=== PATIENT | female | born 1945 | race Caucasian/White ===

== ENCOUNTER 2017-07-27 13:32 | Emergency (ER) | payer MEDICARE, BC ==
[2017-07-27 13:35] VITALS: BMI 35.6
[2017-07-27 13:42] VITALS: TEMP 98.4; O2SAT 97
[2017-07-27] MEDS ORDERED: Sodium Chloride 0.9% 500 ML IV STA (14:08)
--- NOTE | 2017-07-27 14:11 | ED PDOC ---
Arrival/HPI - General Chief Complaint: Shortness Of Breath Time Seen by Provider: 07/27/17 13:33 Historian: Patient - History of Present Illness Narrative History of Present Illness (Text): 07/27/17 14:08 A 72 year old female, whose past medical history includes insulin dependent diabetes, was sent into the emergency department by PMD for evaluation. Patient complains of fatigue, dyspnea on exertion and mild chest pressure. She notes feeling stressed over the past few days. Patient had a recent stress test done on ,which showed normal results. Patient notes nausea and dizziness but denies any fever, chills, vomiting, diarrhea, abdominal pain, hematouria, hematochezia , cough, headache, vision changes or any other complaints. PMD: Dr. Samaniego Annual Giving Officer: Dr. Manzano Time/Duration: Prior to Arrival Symptom Course: Unchanged Quality: Other Context: Other Past Medical History - Provider Review Nursing Documentation Reviewed: Yes - Infectious Disease Hx of Infectious Diseases: None - Tetanus Immunization Tetanus Immunization: Unknown - Cardiac Hx Angina: Yes (chest pain) Hx Hypertension: Yes - Neurological Hx Paralysis: No - Endocrine/Metabolic Hx Diabetes Mellitus Type 1: Yes Hx Diabetes Mellitus Type 2: Yes - Hematological/Oncological Hx Blood Transfusions: No Hx Blood Transfusion Reaction: No - Musculoskeletal/Rheumatological Hx Musculoskeletal Disorders: Yes Other/Comment: tremors - Psychiatric Hx Emotional Abuse: No Hx Physical Abuse: No Hx Substance Use: No - Surgical History Hx Cholecystectomy: Yes Other/Comment: L breast surgery - Anesthesia Hx Anesthesia: Yes Hx Anesthesia Reactions: No Hx Malignant Hyperthermia: No - Suicidal Assessment Feels Threatened In Home Enviroment: No Family/Social History - Physician Review Nursing Documentation Reviewed: Yes Family/Social History: No Known Family HX Smoking Status: Never Smoked Hx Alcohol Use: No Hx Substance Use: No Allergies/Home Meds Allergies/Adverse Reactions: Allergies No Known Allergies Allergy (Verified 03/17/16 22:48) Home Medications: Home Meds Medication Instructions Recorded Confirmed Metoprolol Succinate [Toprol XL] 200 mg PO QAM 08/10/12 07/27/17 Ezetimibe [Zetia] 10 mg PO DAILY 06/10/17 07/27/17 Indapamide [Lozol] 1.25 mg PO DAILY 06/10/17 07/27/17 Insulin Lispro [Humalog (Insulin 21 unit SQ TID 06/10/17 07/27/17 Lispro)] LORazepam [Ativan] 0.5 mg PO BID 06/10/17 07/27/17 Primidone [Mysoline] 100 mg PO HS 06/10/17 07/27/17 Valsartan [Diovan] 320 mg PO DAILY 06/10/17 07/27/17 amLODIPine [Norvasc] 10 mg PO DAILY 06/10/17 07/27/17 Insulin Degludec [Tresiba 70 unit SQ HS 07/27/17 07/27/17 Flextouch U-100] Olopatadine HCl [Pataday] 1 drop BOTHEYES DAILY 07/27/17 07/27/17 Review of Systems - Physician Review All systems were reviewed & negative as marked: Yes - Review of Systems Constitutional: Fatigue. absent: Fevers, Night Sweats Eyes: absent: Vision Changes Respiratory: Other (GOMEZ). absent: Cough Cardiovascular: Chest Pain (Mild chest pressure) Gastrointestinal: Nausea. absent: Abdominal Pain, Diarrhea, Vomiting, Hematochezia Genitourinary Female: absent: Hematuria Neurological: Dizziness. absent: Headache Physical Exam Vital Signs Reviewed: Yes Vital Signs Temp Pulse Resp BP Pulse Ox 07/27/17 14:20 16 07/27/17 13:38 98.4 F 88 18 133/88 97 Temperature: Afebrile Blood Pressure: Normal Pulse: Regular Respiratory Rate: Normal Appearance: Positive for: Well-Appearing, Non-Toxic, Comfortable Pain Distress: None Mental Status: Positive for: Alert and Oriented X 3 - Systems Exam Head: Present: Atraumatic, Normocephalic Pupils: Present: PERRL Conjunctiva: Present: Normal Mouth: Present: Moist Mucous Membranes Pharnyx: No: ERYTHEMA, EXUDATE, TONSILS ENLARGED Neck: Present: Normal Range of Motion Respiratory/Chest: Present: Clear to Auscultation, Good Air Exchange. No: Respiratory Distress, Accessory Muscle Use Cardiovascular: Present: Normal S1, S2, Irregular Rhythm. No: Murmurs Abdomen: Present: Normal Bowel Sounds. No: Tenderness, Distention, Peritoneal Signs Back: Present: Normal Inspection Upper Extremity: Present: Normal Inspection. No: Cyanosis, Edema Lower Extremity: Present: Normal Inspection. No: Edema Neurological: Present: GCS=15, CN II-XII Intact, Speech Normal Skin: Present: Warm, Dry, Normal Color. No: Rashes Psychiatric: Present: Alert, Oriented x 3, Normal Insight, Normal Concentration Medical Decision Making ED Course and Treatment: 07/27/17 14:07 Impression: A 72 year old female with fatigue, dyspnea on exertion and mild chest pressure. Patient notes nausea and dizziness. Plan: -- Chest CT -- Chest xray -- Bilateral duplex lower extremity ultrasound -- Labs -- Urinalysis -- IV fluids -- Reassess and disposition Progress Notes: Report Date : 07/27/2017 15:24:39 PROCEDURE: CHEST RADIOGRAPH, 1 VIEW Dictator : Magui Dhillon MD IMPRESSION: No active pulmonary disease. Report Date : 07/27/2017 15:48:27 PROCEDURE: CT Chest with contrast (Pulmonary Angiogram) Dictator : Michel Doshi MD IMPRESSION: Unremarkable CT pulmonary angiogram. No pulmonary embolus. 07/27/17 16:04 Spoke with missile technician, states lower extremity doppler negative for DVT. 07/27/17 16:30 Patient with noted history of GOMEZ x several days. EKG shows afib and ST segmental changes are unchanged. She just had a negative stress test last month and given symptoms, Dr. Samaniego had been concerned about a possible PE. CTA and LE dopplers are negative for PE and DVT respectively. Case had also been discussed with Dr. Manzano, who said if no PE, she may be d/c. Per Dr. Samaniego, he said to start her on eliquis as anticoagulation for the atrial fibrillation and have her f/u with Dr. Manzano. - Lab Interpretations Lab Results: 07/27/17 14:20 07/27/17 14:20 Lab Results 07/27/17 14:30: Urine Color Yellow, Urine Appearance Clear, Urine pH 6.0, Ur Specific [place] 1.025, Urine Protein Trace H, Urine Glucose (UA) Negative, Urine Ketones Negative, Urine Blood Negative, Urine Nitrate Negative, Urine Bilirubin Negative, Urine Urobilinogen 0.2, Ur Leukocyte Esterase Negative, Urine RBC 0 - 2, Urine WBC 0 - 2, Ur Epithelial Cells 4 - 5, Hyaline Casts 0 - 2 07/27/17 14:20: Sodium 141, Potassium 3.5 L, Chloride 103, Carbon Dioxide 26, Anion Gap 16, BUN 20, Creatinine 0.6, Est GFR ( Amer) > 60, Est GFR (Non- Af Amer) > 60, Random Glucose 175 H, Calcium 9.5, Magnesium 1.6 L, Total Bilirubin 0.4, AST 22, ALT 24, Alkaline Phosphatase 114, Lactate Dehydrogenase 363, Total Creatine Kinase 58, Troponin I < 0.01, NT-Pro-B Natriuret Pep 858 H, Total Protein 7.0, Albumin 4.1, Globulin 2.8, Albumin/Globulin Ratio 1.5, Lipase 88 07/27/17 14:20: PT 10.4, INR 0.96, APTT 27.8 07/27/17 14:20: WBC 7.7, RBC 5.12, Hgb 15.2, Hct 44.4, MCV 86.7, MCH 29.7, MCHC 34.2, RDW 14.0, Plt Count 245, MPV 11.0, Gran % 46.0 L, Lymph % (Auto) 44.5 H, [place] % (Auto) 8.0 H, Eos % (Auto) 1.2 L, Baso % (Auto) 0.3, Gran # 3.53, Lymph # 3.4, [place] # 0.6, Eos # 0.1, Baso # 0.02 I have reviewed the lab results: Yes - RAD Interpretation Radiology Orders: 07/27/17 14:08 ANGIO CHEST PE PROTOCOL [CT] Stat CHEST ONE VIEW [RAD] Stat 07/27/17 14:09 DUPLEX LOWER EXTRM VEIN BILAT [US] Stat - EKG Interpretation EKG Interpretation (Text): 07/27/17 16:52 afib @ [address] changes, present on stress test strips (on 06/10/17); afib was not on that ekg but has already been detected before; QRS is 96; normal axis. Interpreted by ED Physician: Yes Type: 12 lead EKG (06/10/17) - Medication Orders Current Medication Orders: Discontinued Medications Apixaban (Eliquis) 5 mg PO ONCE ONE PRN Reason: Protocol Stop: 07/27/17 16:20 Last Admin: 07/27/17 16:46 Dose: 5 mg Sodium Chloride (Sodium Chloride 0.9%) 500 mls @ 999 mls/hr IV .Q31M STA Stop: 07/27/17 14:38 Last Admin: 07/27/17 14:41 Dose: 999 mls/hr Magnesium Sulfate 2 gm/ Sodium (Chloride) 104 mls @ 102 mls/hr IV ONCE ONE Stop: 07/27/17 15:45 Last Admin: 07/27/17 16:25 Dose: 102 mls/hr Iodixanol (Visipaque 320 Mg/Ml 100 Ml) Confirm Administered Dose 100 ml IV .STK- MED ONE Stop: 07/27/17 14:48 Potassium Chloride (Potassium Chloride Oral Soln) 40 meq PO STAT STA Stop: 07/27/17 14:45 Last Admin: 07/27/17 16:24 Dose: 40 meq - Scribe Statement The provider has reviewed the documentation as recorded by the Nydiaibtommy Jones Provider Scribe Attestation: All medical record entries made by the Scribe were at my direction and personally dictated by me. I have reviewed the chart and agree that the record accurately reflects my personal performance of the history, physical exam, medical decision making, and the department course for this patient. I have also personally directed, reviewed, and agree with the discharge instructions and disposition. Disposition/Present on Arrival - Present on Arrival Any Indicators Present on Arrival: No History of DVT/PE: No History of Uncontrolled Diabetes: No Urinary Catheter: No History of Decub. Ulcer: No History Surgical Site Infection Following: None - Disposition Have Diagnosis and Disposition been Completed?: Yes Diagnosis: Dyspnea on exertion, Atrial fibrillation Disposition: HOME/ ROUTINE Disposition Time: 16:35 Patient Plan: Discharge Patient Problems: Current Active Problems Problem Status Onset Atrial fibrillation Acute Dyspnea on exertion Acute Condition: GOOD Additional Instructions: Take the medication as prescribed. Follow up with Dr. Manzano in 2 days. Return to the emergency department if any new concerning symptom.s Prescriptions: Apixaban [Eliquis] 1 tab PO BID #10 tab Referrals: Patrick Manzano MD [Staff Provider] - Follow up with primary Keenan Samaniego MD [Staff Provider] - Follow up with primary Forms: [employer] (Icelandic)
[2017-07-27 14:30] LABS: BASO # 0.02 K/mm3 (0.0-2.0); BASO % 0.3 % (0.0-3.0); EOS # 0.1 (0.0-0.7); EOS % 1.2 % (1.5-5.0); GRAN # 3.53 (1.4-6.5); HEMATOCRIT 44.4 % (36.0-48.0); LYMPH # 3.4 (1.2-3.4); LYMPH % 44.5 % (22.0-35.0); MEAN CELL VOLUME 86.7 fl (80.0-105.0); MEAN CORPUSCULAR HEMOGLOBIN 29.7 pg (25.0-35.0); MEAN CORPUSCULAR HGB CONC 34.2 g/dl (31.0-37.0); MONO # 0.6 (0.1-0.6); WHITE BLOOD COUNT 7.7 10^3/ul (4.5-11.0)
[2017-07-27 14:38] LABS: ALB/GLOB RATIO 1.5 (1.1-1.8); ALKALINE PHOSPHATASE 114 U/L (38-133); ALT/SGPT 24 U/L (7-56); AST/SGOT 22 U/L (15-39); BILIRUBIN,TOTAL 0.4 mg/dL (0.2-1.3); BLOOD UREA NITROGEN 20 mg/dL (7-21); CALCIUM 9.5 mg/dL (8.4-10.5); CARBON DIOXIDE 26 mmol/L (21-33); CHLORIDE 103 mmol/L (98-107); GFR AFRICAN-AMERICAN > 60; GLUCOSE,RANDOM 175 mg/dL (70-110); LIPASE 88 U/L (23-300); MAGNESIUM 1.6 mg/dL (1.7-2.2); POTASSIUM 3.5 mmol/L (3.6-5.0); SODIUM 141 mmol/L (132-148)
[2017-07-27 14:40] LABS: INR 0.96 (0.93-1.08); PARTIAL THROMBOPLASTIN TIME 27.8 Seconds (23.7-30.8)
[2017-07-27] MEDS ORDERED: Potassium Chloride 40 mEq/30 ml LIQ UD PO STA (14:44)
[2017-07-27] MEDS ORDERED: Magnesium Sulfate 2 GM in Sodium Chloride 0.9% 100 ML IV ONE (14:44)
[2017-07-27] MEDS ORDERED: Iodixanol 320 MG/ML 100 ML BOTTLE IV ONE (14:47)
[2017-07-27 14:50] LABS: TROPONIN I < 0.01 ng/mL
[2017-07-27 15:12] LABS: URINE BILIRUBIN NEGATIVE (NEGATIVE); URINE BLOOD NEGATIVE (NEGATIVE); URINE GLUCOSE (UA) NEGATIVE (NEGATIVE); URINE KETONE NEGATIVE (NEGATIVE); URINE LEUKOCYTE ESTERASE NEGATIVE Leu/uL (NEGATIVE); URINE PROTEIN TRACE mg/dL (<30 mg/dL); URINE UROBILINOGEN 0.2 E.U./dL (<1 E.U./dL)
[2017-07-27 15:18] LABS: URINE APPEARANCE CLEAR (CLEAR); URINE COLOR YELLOW (YELLOW)
--- NOTE | 2017-07-27 15:26 | RAD ---
PROCEDURE: CHEST RADIOGRAPH, 1 VIEW HISTORY: Shortness of breath COMPARISON: 03/17/2017 FINDINGS: LUNGS: The lungs are well inflated and clear. PLEURA: No pneumothorax or pleural fluid seen. CARDIOVASCULAR: Normal. OSSEOUS STRUCTURES: No significant abnormalities. VISUALIZED UPPER ABDOMEN: Normal. OTHER FINDINGS: None. IMPRESSION: No active pulmonary disease.
[2017-07-27 15:36] LABS: URINE RBC 0 - 2 /hpf (0-2); URINE WBC 0 - 2 /hpf (0-6)
--- NOTE | 2017-07-27 15:50 | CT ---
PROCEDURE: CT Chest with contrast (Pulmonary Angiogram) HISTORY: sob, palpitations COMPARISON: None available. TECHNIQUE: Axial computed tomography images were obtained of the chest in the pulmonary arterial phase of enhancement. Coronal and sagittal reformatted images were created and reviewed. Intravenous contrast dose: 100 cc of Visipaque Radiation dose: Total exam DLP = 640 mGy-cm. This CT exam was performed using one or more of the following dose reduction techniques: Automated exposure control, adjustment of the mA and/or kV according to patient size, and/or use of iterative reconstruction technique. FINDINGS: PULMONARY ARTERIES: Unremarkable. No pulmonary embolism. AORTA: No acute findings. No thoracic aortic aneurysm. LUNGS: Unremarkable. No nodule, mass or pulmonary consolidation. PLEURAL SPACES: Unremarkable. No effusion or pneuomothorax. HEART: Unremarkable. Moderate cardiomegaly. No significant pericardial effusion. LYMPH NODES: No lymphadenopathy. BONES, CHEST WALL: Unremarkable. No fracture or destructive lesion OTHER FINDINGS: Unremarkable. IMPRESSION: Unremarkable CT pulmonary angiogram. No pulmonary embolus.
[2017-07-27 17:03] VITALS: BP 127/69; PULSE 82; RESP 18
--- NOTE | 2017-07-27 19:00 | US ---
HISTORY: Leg pain and swelling. Evaluate for DVT PHYSICIAN(S): Patrick Augustine MD. TECHNIQUE: Duplex sonography and color-flow Doppler with graded compression were used to evaluate the deep venous systems of both lower extremities. FINDINGS: The visualized deep venous systems of both lower extremities are sonographically normal and compressible. Normal wave forms and augmentation are seen. There is no sonographic evidence for deep venous thrombosis in the visualized segments of both lower extremities. IMPRESSION: No sonographic evidence for deep venous thrombosis in the visualized segments of both lower extremities.
--- NOTE | 2017-07-28 09:36 | CARD ---
APPROVED REPORT EKG Measurement Heart [id number] <Conclusion> Atrial fibrillation ST & T wave abnormality, consider inferior ischemia or digitalis effect Abnormal ECG
== END 2017-07-27 17:27 | disposition home or self-care (01) ==
LOC: ED 13:32
DX: I48.91 Unspecified atrial fibrillation (principal); R06.00 Dyspnea, unspecified; I10 Essential (primary) hypertension; E11.9 Type 2 diabetes mellitus without complications; Z79.4 Long term (current) use of insulin
CPT/HCPCS: 71010; 71275; 80053; 81001; 82550; 83615; 83690; 83735; 83880; 84484; 85025; 85610; 85730; 93005; 93970; 96361; 96365; 99285; J3475; J3480; J7040; Q9967